=== PATIENT | female | born 1985 | race Caucasian/White ===

== ENCOUNTER 2016-10-28 19:50 | Emergency (ER) | payer BC ==
[~2016-10-28] VITALS: Ht 144.8 cm; Wt 54.5 kg
[2016-10-28] MEDS ORDERED: TOPI25 PO (20:04)
[2016-10-28] MEDS ORDERED: HYDROCODONE/ACETAMINOPHEN 5-325 MG TABLET PO ONE (22:15)
[2016-10-28 23:00] VITALS: BP 130/77
== END 2016-10-28 23:00 | disposition home or self-care (01) ==
LOC: EDBD 19:53 → EMS 19:53
DX: S06.0X0A Concussion without loss of consciousness, initial encounter (principal); Y04.0XXA Assault by unarmed brawl or fight, initial encounter; Y93.89 Activity, other specified; Y92.89 Other specified places as the place of occurrence of the external cause; Y99.8 Other external cause status
CPT/HCPCS: 70450; 70486; 99285